=== PATIENT | male | born 1995 | race Two or more races ===

== ENCOUNTER 2018-12-05 07:38 | Emergency (ER) | payer SELFPAY ==
[~2018-12-05] VITALS: Ht 193 cm; Wt 99.8 kg
[2018-12-05 07:51] VITALS: BP 131/64
--- NOTE | 2018-12-05 07:55 | NUR ---
ED Nurse Note: Pt. AAOx4. ambulatory. came in to ER for medical clearance. Per pt. he felt sick and cold while he was in [facility]
--- NOTE | 2018-12-05 08:00 | Emergency Room Report ---
History of Present Illness General Chief Complaint: Medical Clearance Source: Patient Present Illness HPI Patient is a 23-year-old male presented after increased for medical clearance. Patient had recently been incarcerated. Patient stated that he had been feeling bad last night and had been having some abdominal pain. This had resolved. Patient denies any current complaints at this time. Patient was brought in by [facility] for medical clearance. Patient denies any current symptoms. He states he feels better now. He reports having prior history of anxiety and states he was taking antianxiety medications intermittently. He denies any anxiety symptoms at this time. Allergies: Coded Allergies: No Known Allergies (Unverified , 12/05/18) Patient History Past Medical History: see triage record Reviewed Nursing Documentation: PMH: Agreed; PSxH: Agreed Nursing Documentation-PMH Past Medical History: No Stated History Review of Systems All Other Systems: negative except mentioned in HPI Physical Exam Vital Signs Date Time Temp Pulse Resp B/P (MAP) Pulse Ox O2 Delivery O2 Flow Rate FiO2 12/05/18 07:51 60 18 Room Air 12/05/18 07:51 97.9 131/64 99 General Appearance: well appearing, no apparent distress, alert, GCS 15 Head: normocephalic, atraumatic ENT: hearing grossly normal, normal voice Neck: full range of motion, supple Respiratory: lungs clear, normal breath sounds, no respiratory distress, speaking full sentences Cardiovascular #1: normal inspection, regular rate, rhythm, no edema, no gallop , no JVD, no murmur Gastrointestinal: normal inspection, non tender, soft Musculoskeletal: normal inspection, back normal, digits/nails normal, gait/ station normal, normal range of motion, no calf tenderness Neurologic: normal inspection, alert, oriented x3, responsive, 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 Differential diagnosis includes was not limited to gastroenteritis, malingering , dyspepsia, anxiety among others. Patient has a benign exam and does not appear to require any further imaging or laboratory testing at this time. Patient does not appear to have any acute symptoms. Patient currently denies any complaints. He is noted to have no acute distress. He does not appear to be intoxicated with any substances at this time. Patient is awake and alert. He is medically cleared for booking. Last Vital Signs Date Time Temp Pulse Resp B/P (MAP) Pulse Ox O2 Delivery O2 Flow Rate FiO2 12/05/18 07:51 97.9 60 18 131/64 99 Room Air Status: improved Disposition: D/C TO LAW ENFORCEMENT IN [facility] Condition: Stable Los Melara MD Dec 05, 2018 08:00
--- NOTE | 2018-12-05 08:00 | NUR ---
ED Nurse Note: Patient is being discharged from medical care. Awake, alert and oriented x4. After care instructions, including referral to community resources were given. Patient verbalized understanding of After care instructions; at this time patient does not request medications, equipment or placement. Patient signed patient consent in the medical record for patient destination upon discharge. All medical devices such as IV and ID band were removed. Patient ambulated out with all personal belongings with steady gait.Pt. is medically cleared
[2018-12-05 08:08] VITALS: BP 131/64
== END 2018-12-05 08:00 | disposition home or self-care (01) ==
LOC: EMR 08:00
DX: R10.9 Unspecified abdominal pain (principal); F41.9 Anxiety disorder, unspecified
CPT/HCPCS: 99282